=== PATIENT | female | born 1965 | race African-American/Black ===

== ENCOUNTER → 2020-06-25 | Outpatient (CLI) | payer OTHER | LOC: RAD 10:05 | PROVIDERS: ATTEND Internal Medicine | DX: Z12.31 Encounter for screening mammogram for malignant neoplasm of breast (principal) | CPT/HCPCS: 77067; 93970 ==

== ENCOUNTER 2020-07-18 14:42 | Outpatient (RCR) | payer OTHER | END 2020-07-19 | LOC: PT 14:42 | PROVIDERS: ATTEND Specialist | DX: S86.812A Strain of other muscle(s) and tendon(s) at lower leg level, left leg, initial encounter (principal); S86.811A Strain of other muscle(s) and tendon(s) at lower leg level, right leg, initial encounter ==